=== PATIENT | female | born 1970 | race Caucasian/White ===

== ENCOUNTER 2020-05-13 16:34 | Emergency (ER) | payer OTHER ==
[~2020-05-13] VITALS: Ht 162.6 cm; Wt 74.8 kg
[2020-05-13] MEDS ORDERED: HYDROCHLOROTHIA25 MG (16:52)
[2020-05-13] MEDS ORDERED: AVAPRO300 MG (16:52)
== END 2020-05-13 20:35 | disposition home or self-care (01) ==
LOC: ER 16:34
DX: J02.8 Acute pharyngitis due to other specified organisms (principal); R06.02 Shortness of breath; Z20.828 Contact with and (suspected) exposure to other viral communicable diseases